=== PATIENT | female | born 1985 | race Caucasian/White ===

== ENCOUNTER 2020-04-24 09:13 | Outpatient (REF) | payer OTHER, SELFPAY | END 2020-04-24 09:14 | disposition home or self-care (01) | LOC: HO.LAB 09:13 | PROVIDERS: PCP Internal Medicine; Visit Provider Internal Medicine | DX: Z20.828 Contact with and (suspected) exposure to other viral communicable diseases (principal) | CPT/HCPCS: C9803; U0003 ==

== ENCOUNTER 2022-02-09 10:19 | Emergency (ER) | payer OTHER, SELFPAY ==
--- NOTE | ~2022-02-09 | XR_ITS ---
EXAMINATION: XR FOOT, LEFT CLINICAL INFORMATION: Left foot pain, rule out foreign body. COMPARISON: None TECHNIQUE: AP, lateral, and oblique views of the left foot. An indicator arrow points to the plantar soft tissues superficial to the calcaneus. FINDINGS: There is no acute fracture or dislocation. The joint spaces are unremarkable. The tarsal bones are normally aligned. Small plantar calcaneal spur. The soft tissues are unremarkable. No radiopaque foreign body. XR/XR foot LT min 3V IMPRESSION: 1. No acute fracture or significant degenerative changes. 2. No radiopaque foreign body in the region of concern. 3. Small plantar calcaneal spur.
[2022-02-09 10:26] VITALS: BP 118/92; PULSE 83; RESP 16; TEMP 36.7; BMI 42.9
--- NOTE | 2022-02-09 11:13 | ED.EXTPRO ---
HPI - Extremity Problem General Chief complaint: Extremity Problem Stated complaint: Glass in L foot Time Seen by Provider: 02/09/22 10:38 Source: patient Mode of arrival: ambulatory Limitations: no limitations History of Present Illness HPI Narrative: patient presents emergency department for evaluation of right heel pain. She reports that 2 nights ago she believes she may have stepped on some broken glass that was on the floor. Initially thought that her pain was secondary to foot wear. The following morning her pain continued, examined her foot and noted glass to be present in the heel, which her significant other was able to remove. However, the pain persists, and she has current concerns that class has remained within her heel. Pain is made worse with weight-bearing. Related Data Allergies Allergy/AdvReac Type Severity Reaction Status Date / Time No Known Allergies Allergy Mild NOT Unverified 02/22/20 16:56 APPLICABLE Review of Systems Review of Systems: Constitutional: No, fever, chills, weakness or fatigue. Skin: No rash or itching. Cardiovascular: No chest pain, chest pressure or chest discomfort. Respiratory: No shortness of breath, cough or sputum production. Gastrointestinal: No, nausea, vomiting or diarrhea. No abdominal pain Genitourinary: No burning micturition. No urinary frequency or incontinence. Musculoskeletal: Positive foot pain Psychiatric: No depression or anxiety. Yes all other systems are reviewed and are negative PMFSH Past Medical History Attestation statement: The following information was validated with the patient. Source: old records reviewed Social History Social History Advance Directives: No Advance Directives Information Provided: Yes Physical Exam Vital Signs: Vital Signs: Last Vital Signs Temp 98.1 F 02/09/22 10:26 Pulse 83 02/09/22 10:26 Resp 16 02/09/22 10:26 BP 118/92 H 02/09/22 10:26 O2 Del Method 02/09/22 10:26 BMI result Body Mass Index 42.9 Appearance: Alert.?Oriented to person, place and time. No acute distress.?Normal affect. Eyes: Pupils equal, round and reactive to light.? ENT: Pharynx normal.?? Neck: Normal inspection.? Neck supple.?? CVS: Heart sounds normal. Normal heart rate and rhythm.? Pulses normal.?? Respiratory: No respiratory distress.? Lung sounds clear to auscultation bilaterally?? Abdomen: Soft and non-tender. Normoactive bowel sounds. No pulsatile mass.?? Skin: Skin warm and dry.? Normal skin color.? very small puncture like abrasion to the right plantar surface of heel. no palpable foreign body. No surrounding erythema. No swelling. No drainage.?? Extremities: No lower extremity edema.? Neuro: Moves all extremities spontaneously. Sensation intact bilaterally. Ambulates with normal steady gait. Course Course Course Narrative: Patient is a 37-year-old female with no significant past medical history presents emergency department for evaluation of right heel pain after recently stepping on glass, with concern for retained foreign body. XR reveals no radiopaque foreign body, she does however have a small plantar calcaneal spur. It is not typical for her to wear heels which she was wearing the other night. Pain is either consistent with soft tissue injury to this area, or plantar fasciitis given the spur and recent footwear. Discussed plan of care for discharge home, NSAIDs, rest, No barefoot walking, shoe inserts, follow-up as needed with primary care provider/ podiatry for further evaluation and treatment. MDM - Extremity (Nontraumatic) Medical Records Attestation: I reviewed the patient's medical records. Imaging Data XR foot: Radiologist's impression: XR/XR foot LT min 3V IMPRESSION: 1. No acute fracture or significant degenerative changes. 2. No radiopaque foreign body in the region of concern. 3. Small plantar calcaneal spur. Discharge Plan Discharge Clinical Impression: Heel pain Patient Disposition: Home, Self-Care Instructions: Plantar Fasciitis (ED), Plantar Fasciitis Exercises (ED) Additional Instructions: As we discussed, the x-ray does not reveal any glass that has remained in your foot. You do have a bone spur to your right heel, as we discussed this may be causing plantar fasciitis which can cause you to have heel pain Avoid wearing aggravating footwear such as heels, avoid walking barefoot, use ibuprofen 200 mg, 3 tablets (600mg) every 6-8 hours as needed for pain, try to rest your foot, Consider purchasing [id number] heel shoe inserts if your pain persists. Follow-up with your primary care provider as needed Return to the emergency department any new or worsening symptoms or concerns
== END 2022-02-09 11:39 | disposition home or self-care (01) ==
PROVIDERS: Emergency Provider Emergency Medicine; PCP Internal Medicine
DX: M79.671 Pain in right foot (principal)
CPT/HCPCS: 73630; 99282; 99283